=== PATIENT | female | born 1930 | race Caucasian/White ===

== ENCOUNTER 2020-02-15 18:33 | Inpatient (IN) | payer MEDICARE, OTHER ==
[~2020-02-15] VITALS: Ht 162.6 cm; Wt 71.2 kg
--- NOTE | 2020-02-15 18:43 | NUR ---
DR KAHN AT BEDSIDE FOR EVAL.
--- NOTE | 2020-02-15 18:48 | NUR ---
PT BIBRA FROM HOME TO ER BED 08. PER REPORT, PT HAVING INCREASING AGITATION. BG PER EMS SHOWING CRITICAL HIGH. PT WARM TO TOUCH, FEBRILE CHIEF FINANCIAL OFFICER. GOWNED AND PLACE ON MONITOR. AWAITING MD PIERCE.
--- NOTE | 2020-02-15 18:51 | NUR ---
RADIOLOGY AT BEDSIDE FOR CHEST XRAY.
--- NOTE | 2020-02-15 18:52 | NUR ---
IV LINE STARTED BLOOD DRAWN AND SENT TO LAB.
[2020-02-15 18:55] LABS: BASOPHILS # (AUTO) 0.2 /CMM (0.0-0.2); BASOPHILS % (AUTO) 1.2 % (0.0-2.0); EOSINOPHILS % (AUTO) 0.1 % (0.0-6.0); HEMATOCRIT 40 % (33-45); HEMOGLOBIN 12.8 g/dL (11.5-14.8); LYMPHOCYTES # (AUTO) 2.6 /CMM (0.8-4.8); LYMPHOCYTES % (AUTO) 16.2 % (20.0-44.0); MEAN CORPUSCULAR HGB CONC 32 g/dl (31.0-36.0); MEAN CORPUSCULAR VOLUME 98 fL (82-100); MONOCYTES # (AUTO) 0.7 /CMM (0.1-1.30); NEUTROPHILS # (AUTO) 12.7 /CMM (1.8-8.9); NEUTROPHILS % (AUTO) 78.5 % (43.0-81.0); PLATELET COUNT (AUTO) 303 /CMM (150-450); RED BLOOD CELL COUNT(AUTO) 4.07 MIL/uL (4.0-5.2); WHITE BLOOD COUNT (AUTO) 16.1 K/uL (4.3-11.0)
[2020-02-15] MEDS ORDERED: ACETAMINOPHEN 650 MG/SUPP.RECT RC ONE ×2 (19:00→19:07)
[2020-02-15 19:17] LABS: ALANINE AMINOTRANSFERASE 30 U/L (12-78); ALBUMIN 4.1 g/dL (3.4-5.0); ALKALINE PHOSPHATASE 141 U/L (46-116); ASPARTATE AMINOTRANSFERASE 25 U/L (15-37); BILIRUBIN,DIRECT 0.2 mg/dL (0.0-0.2); BILIRUBIN,TOTAL 0.8 mg/dL (0.2-1.0); CALCIUM, SERUM 9.7 mg/dL (8.5-10.1); CARBON DIOXIDE 17 mmol/L (21-32); CHLORIDE 89 mmol/L (98-107); CREATININE 1.7 mg/dL (0.6-1.3); POTASSIUM 3.9 mmol/L (3.5-5.1); SODIUM SERUM 128 mmol/L (136-145); UREA NITROGEN, BLOOD 40 mg/dL (7-18)
[2020-02-15 19:22] LABS: GLUCOSE 672 mg/dL (74-106)
--- NOTE | 2020-02-15 19:29 | NUR ---
REPORT GIVEN TO INSPECTING AND TESTING LEAD HAND NURSE LEONARDO FOR JAQUELIN.
--- NOTE | 2020-02-15 19:30 | NUR ---
REPORT RECEIVED FROM LILI HAYNES FOR JAQUELIN
[2020-02-15 19:59] LABS: C-REACTIVE PROTEIN 5.8 mg/dL (0.0-0.9)
[2020-02-15 20:15] LABS: APPEARANCE,URINE Clear (CLEAR); BILIRUBIN,URINE Negative (NEGATIVE); BLOOD, URINE Moderate Ery/uL (NEGATIVE); COLOR,URINE Yellow (YELLOW); KETONES,URINE 80 (NEGATIVE); LEUKOCYTE ESTERASE ,URINE Trace (NEGATIVE); NITRITE, URINE Negative (NEGATIVE); PROTEIN,URINE 100 mg/dl (NEGATIVE); UGLUCOSE 500 MG/DL mg/dL (NEGATIVE); UROBILINOGEN,URINE 0.2 EU/dL (0.2)
[2020-02-15] MEDS ORDERED: INSULIN ASPART/LISPRO 100 UNIT/ML CARTRIDGE SQ STA (20:21)
[2020-02-15 20:30] LABS: BACTERIA,URINE Few /HPF (None Seen); SQUAMOUS EPITHELIAL CELL,UR Rare /HPF (None Seen)
[2020-02-15] MEDS ORDERED: IV NS 0.9% 1,000 ML BAG IV ONE (20:30)
[2020-02-15] MEDS ORDERED: PIPERACILLIN /TAZOBACTAM 2.25 G in IV D5W 50 ML IV ONE (20:30)
[2020-02-15] MEDS ORDERED: VANCOMYCIN 1 GM in IV D5W 250 ML IV ONE (20:30)
[2020-02-15] MEDS ORDERED: INSULIN REGULAR, HUMAN 100 UNIT/ML 10 ML VIAL ONE (20:36)
[2020-02-15] MEDS ORDERED: PIPERACILLIN /TAZOBACTAM 3.375 G VIAL IV ONE (20:36)
[2020-02-15] MEDS ORDERED: VANCOMYCIN 1 GM VIAL ONE (20:36)
[2020-02-15 20:45] LABS: ABG BASE EXCESS -10.1 mmol/L; ABG OXYGEN SATURATION 95.4 % (92.0-98.5); ABG PCO2 24.4 mmHg (35.0-45.0); ABG PH 7.359 (7.350-7.450); ABG PO2 79.3 mmHg (75.0-100.0); AaDO2 41.2 mmHg; COHb 0.4 % (0.5-1.5); MetHb 0.4 % (0.0-1.5); O2Hb 94.6 % (94.0-97.0); SITE, ABG Right Radial; VENT MODE, BG ROOM AIR
--- NOTE | 2020-02-15 21:47 | NUR ---
ICU 253
--- NOTE | 2020-02-15 22:00 | NUR ---
REPORT GIVEN TO LILI STORY FOR JAQUELIN
[2020-02-15] MEDS ORDERED: ESCI10TA PO (22:11)
[2020-02-15] MEDS ORDERED: DULO20CA PO (22:11)
[2020-02-15] MEDS ORDERED: NIFE30TA91 PO (22:11)
[2020-02-15] MEDS ORDERED: ATOR40TA PO (22:11)
[2020-02-15] MEDS ORDERED: RIVA10TA PO (22:11)
[2020-02-15] MEDS ORDERED: ATEN100T PO (22:11)
[2020-02-15] MEDS ORDERED: LEVO100T9 PO (22:11)
[2020-02-15] MEDS ORDERED: INSU100V10 SQ (22:11)
[2020-02-15] MEDS ORDERED: INSU100V11 SQ (22:11)
[2020-02-15] MEDS ORDERED: DAPA10TA PO (22:11)
[2020-02-15] MEDS ORDERED: ZOLPIDEM TARTRATE 5 MG TABLET PO PRN (23:00)
[2020-02-15] MEDS ORDERED: INSULIN REGULAR, HUMAN 100 UNIT in IV NS 0.9% 99 ML IV PRN ×2 (23:00)
[2020-02-15] MEDS ORDERED: HYDROCODONE/APAP 5/325MG 1 EACH TABLET PO PRN (23:00)
[2020-02-15] MEDS ORDERED: MAGNESIUM HYDROXIDE 30 ML UDC PO PRN (23:00)
[2020-02-15] MEDS ORDERED: Z GUARD REMEDY 2 OZ OINT TP PRN (23:00)
[2020-02-15] MEDS ORDERED: ONDANSETRON HCL/PF 4 MG/2 ML VIAL IVP PRN (23:00)
--- NOTE | 2020-02-15 23:33 | NUR ---
PT TRANSPORTED TO ICU VIA ACLS PROTOCOL
--- NOTE | 2020-02-15 23:35 | NUR ---
VETERINARY MILK SPECIALISTAIR HAMMER STRIPPER NOTES RECEIVED PATIENT FROM ER VIA [facility]. PATIENT IS AWAKE, BUT CONFUSED, ONLY STATES "PLEASE HELP ME" REPEATEDLY. WHEN ASKED HOW STAFF CAN HELP, PATIENT CONTINUES TO STATES "PLEASE HELP ME." UNABLE TO ESTABLISH MEANINGFUL COMMUNICATION WITH PATIENT. PLACED ON BEDSIDE TELEMONITORING, SHOWING SINUS RHYTHM, HR 80 BPM. RIGHT ARM NOTED WITH FREEDOM SPLINT, RIGHT AC #18G, NEW IV ACCESS PLACED ON RIGHT HAND #22G, WILL START INSULIN DRIP ORDERED. SKIN CHECK DONE, PATIENT ALREADY ON ISOFLEX MATTRESS, WOUND CARE CONSULT TRIGGERED. EUBANKS CATHETER PATENT AND INTACT, DRAINING CLEAR YELLOW URINE VIA GRAVITY. WILL CONTINUE TO CLOSELY MONITOR THE PATIENT
[2020-02-15 23:37] VITALS: BP 112/78
[2020-02-15 23:42] VITALS: BP 112/78
[2020-02-15 23:45] VITALS: BP 112/78
[2020-02-15 23:48] LABS: B-TYPE NATRIURETIC PEPTIDE 2993 PG/ML (0-125); CALCIUM, SERUM 8.9 mg/dL (8.5-10.1); CARBON DIOXIDE 21 mmol/L (21-32); CHLORIDE 95 mmol/L (98-107); CREATININE 1.5 mg/dL (0.6-1.3); POTASSIUM 3.8 mmol/L (3.5-5.1); SODIUM SERUM 131 mmol/L (136-145); UREA NITROGEN, BLOOD 35 mg/dL (7-18)
[2020-02-15] MEDS: Magnesium 1GM/D5W 100ML PREMIX 100 ML IV SCH (23:50)
[2020-02-15 23:53] LABS: GLUCOSE 437 mg/dL (74-106)
[2020-02-16] VITALS (27 sets, daily range): BP systolic 108–153; BP diastolic 31–102
[2020-02-16] MEDS ORDERED: ZOSYN IVPB 2.25 G in IV D5W 50ml IV SCH ×2
[2020-02-16] MEDS ORDERED: INSULIN REGULAR, HUMAN 100 UNIT in IV NS 0.9% 99 ML IV PRN ×2
[2020-02-16] MEDS ORDERED: Potassium Chloride 20 MEQ in IV D5/ 0.9% NACL 1,000 ML IV PRN ×2
[2020-02-16] MEDS ORDERED: INSULIN REGULAR, HUMAN 100 UNIT/ML 3 ML VIAL ONE (00:11)
[2020-02-16] MEDS: BLOOD SUGAR DIAGNOSTIC 1 EACH STRIP IN SCH ×14 (00:16→21:25)
[2020-02-16] MEDS ORDERED: IV D5/0.45 NACL 1,000 ML IV PRN (00:30)
[2020-02-16] MEDS: Magnesium 1GM/D5W 100ML PREMIX 100 ML IV SCH (00:30)
[2020-02-16] MEDS ORDERED: IV NS 0.9% 1,000 ML IV PRN (00:30)
[2020-02-16] MEDS: POTASSIUM CL. PREMIX PERIPHER. 50 ML IV SCH ×6 (00:34→09:47)
--- NOTE | 2020-02-16 03:30 | NUR ---
LEATHER STRIPPING MACHINE OPERATOR NOTES BLOOD SUGAR NOW DOWN TO 221, LESS THAN 250. PER CJ ALVARADO DNP, DC IV FLUIDS NS @ 100ML/HR AND CHANGE IV FLUIDS TO D5 1/2 NS @ 100ML/HR.
[2020-02-16 04:17] LABS: BASOPHILS # (AUTO) 0.3 /CMM (0.0-0.2); BASOPHILS % (AUTO) 1.6 % (0.0-2.0); EOSINOPHILS % (AUTO) 0.5 % (0.0-6.0); HEMATOCRIT 36 % (33-45); HEMOGLOBIN 12.1 g/dL (11.5-14.8); LYMPHOCYTES # (AUTO) 4.3 /CMM (0.8-4.8); MEAN CORPUSCULAR HGB CONC 34 g/dl (31.0-36.0); MEAN CORPUSCULAR VOLUME 93 fL (82-100); MONOCYTES # (AUTO) 1.5 /CMM (0.1-1.30); MONOCYTES % (AUTO) 7.9 % (2.0-12.0); NEUTROPHILS # (AUTO) 12.6 /CMM (1.8-8.9); PLATELET COUNT (AUTO) 268 /CMM (150-450); RED BLOOD CELL COUNT(AUTO) 3.83 MIL/uL (4.0-5.2); WHITE BLOOD COUNT (AUTO) 18.8 K/uL (4.3-11.0)
[2020-02-16 04:31] LABS: ALBUMIN 3.4 g/dL (3.4-5.0); BILIRUBIN,TOTAL 0.5 mg/dL (0.2-1.0); CALCIUM, SERUM 8.7 mg/dL (8.5-10.1); CREATININE 1.3 mg/dL (0.6-1.3); MAGNESIUM 2.3 mg/dL (1.8-2.4); PHOSPHORUS 1.9 mg/dL (2.5-4.9); POTASSIUM 3.5 mmol/L (3.5-5.1); TOTAL PROTEIN, SERUM 7.8 g/dL (6.4-8.2)
[2020-02-16 04:40] LABS: THYROID STIMULATING HORMONE 7.015 uIU/mL (0.358-3.74)
--- NOTE | 2020-02-16 05:00 | NUR ---
SALES EXPERT NOTES RECEIVED CALL FROM LAB WITH CRITICAL RESULTS. TROP NOW 0.404. K = 3.5 DESPITE REPLACEMENT OF 40 MEQ KCL, ANION GAP NOW 14, LATEST BLOOD SUGAR = 156. CJ ALVARADO DNP NOTIFIED REGARDING LABS. NO NEW ORDER FOR TROPONIN SINCE HEPAPRIN IS ALREADY ORDERED Q12H, NEXT DOSE AT 0900. Addendum: 02/16/20 at 0620 by SLIM VILLATORO RN PER DNP, REPLACE K WITH ADDITIONAL 20 MEQ KCL IV. ALTHOUGH ANION GAP IS NOW 14, DNP WANTS TO KEEP INSULIN DRIP GOING SINCE PATIENT RECEIVED LONG ACTING INSULIN IN THE ER. WILL CONTINUE INSULIN DRIP ORDERED
--- NOTE | 2020-02-16 06:30 | NUR ---
SHADE MATCHER NOTES PATIENT LAYING IN BED, ASLEEP AT THIS TIME. CONTINUES ON INSULIN DRIP, CURRENT RATE @ 2.5 UNITS/HR. WILL ENDORSE THE PATIENT TO THE AM SHIFT NURSE FOR JAQUELIN
[2020-02-16] MEDS ORDERED: FEE PK DOSING 1 MIN EA MC ONE (07:02)
--- NOTE | 2020-02-16 07:40 | NUR ---
WOUND CARE CONSULT: REVIEWED CHART, NURSING DOCUMENTATION AND PHOTOS WHICH SHOW SACRAL SCARRING WITH AT LEAST PARTIAL THICKNESS WOUNDS TO SACRAL AREA AND BILATERAL BUTTOCKS, PRESENT ON ADMISSION. RECOMMENDATIONS MADE FOR WOUND CARE AND SKIN PROTECTION. DISCUSSED WITH NURSING STAFF. PT IS ON [place] ISOFLEX LOW AIRLOSS BED. WILL SEE PRN. WISEMAN IN AGREEMENT WITH PLAN OF CARE.
[2020-02-16] MEDS ORDERED: HYDROGEL DRESSING 90 GM TUBE TP PRN (08:00)
[2020-02-16] MEDS ORDERED: NEUTRA PHOS 1 POWD.PACKET PO SCH (08:30)
[2020-02-16] MEDS ORDERED: HEPARIN SODIUM, PORCINE 5000 UNITS/1 ML VIAL SQ SCH (09:00)
[2020-02-16] MEDS: POTASSIUM CHLORIDE 20 MEQ TAB.PRT.SR PO SCH ×2 (09:00→09:34)
--- NOTE | 2020-02-16 09:00 | NUR ---
RN NOTES CONFIRMED WITH DR. ALCANTARA REGARDING ORDER FOR 40MEQ POTASSIUM PO BÁRBARA TOP OF 60MEQ GIVEN IV, PER MD 60MEQ ADMINISTERED IN THE MORNING. MEDICATION NOT ADMINISTERED.
[2020-02-16] MEDS: ATORVASTATIN 40 MG TABLET PO SCH (09:31)
[2020-02-16] MEDS: FUROSEMIDE 40 MG/4 ML VIAL IV SCH ×3 (09:31→16:55)
[2020-02-16] MEDS: PANTOPRAZOLE 40 MG VIAL IV SCH (09:31)
[2020-02-16] MEDS: ASPIRIN 81 MG TAB.CHEW PO SCH (09:31)
[2020-02-16] MEDS: LEVOTHYROXINE SODIUM 100 MCG TABLET PO SCH (09:32)
[2020-02-16] MEDS: HYDROGEL DRESSING 90 GM TUBE TP SCH (09:33)
[2020-02-16] MEDS: NIFEdipine XL (30MG) 30 MG TAB PO SCH (09:33)
[2020-02-16] MEDS: ESCITALOPRAM OXALATE (10 MG) 10 MG TABLET PO SCH (09:33)
[2020-02-16] MEDS: DULOXETINE HCL 20 MG CAPSULE.DR PO SCH (09:34)
[2020-02-16] MEDS: CARVEDILOL 6.25 MG TABLET PO SCH ×2 (09:35→20:52)
[2020-02-16] MEDS ORDERED: Sodium Phosphate 15 MMOL in IV NS 0.9% 95 ML IV SCH (10:00)
[2020-02-16] MEDS ORDERED: IV NS 0.9% 250 ML IV PRN (10:00)
[2020-02-16 10:26] LABS: CALCIUM, SERUM 8.7 mg/dL (8.5-10.1); CREATININE 1.3 mg/dL (0.6-1.3); POTASSIUM 3.2 mmol/L (3.5-5.1)
--- NOTE | 2020-02-16 11:00 | NUR ---
RN NOTES DR. GONZALEZ IN THE UNIT, UPDATE WITH THE RECENT BLOOD SUGAR RESULTS AND ANION GAP. DR. GONZALEZ WITH INSTRUCTIONS TO CONFIRM WITH FAMILY ON HOW MUCH LONG ACTING INSULIN DOES THE PATIENT GETS USUALLY. ADMINISTER MEDICATION AND THEN STOP THE INSULIN DRIP AFTER AN HOUR. CALLED MATT (DAUGHTER) [phone] BUT ACCORDING TO THE DAUGHTER, PATIENT HAS BEEN RESIDING AT [place]? TEL # AT [phone]. SPOKE TO FRANCI FROM [facility] WHO CLAIMED TO FAX HOSPITAL THE MEDICATION RECORD OF THE PATIENT, AWAITING PAPER WORKS.
--- NOTE | 2020-02-16 11:30 | NUR ---
RN NOTES OBTAINED MEDICATION RECORD FROM [facility], CALLED DR. GONZALEZ TO CONFIRMED. OBTAINED ORDERS FOR 1. GIVE LANTUS 17 UNITS NOW THEN TWICE A DAY. STOP INSULI DRIP AFTER THE MEDICATION ADMINISTRATION. START PATIENT WITH DIET AND START PATIENT WITH AGGRESSIVE SLIDING SCALE. ORDERS REPEATED BACK AND CARRIED OUT.
[2020-02-16] MEDS ORDERED: *INSULIN REGULAR(HUMULIN R)HUM 100 UNIT/ML VIAL SQ PRN (12:00)
[2020-02-16] MEDS ORDERED: DEXTROSE 50%-WATER 50 ML DISP.SYRIN IV PRN (12:00)
[2020-02-16] MEDS: PIPERACILLIN /TAZOBACTAM 3.375 G in IV D5W 100 ML IV SCH ×2 (12:20→20:46)
[2020-02-16] MEDS ORDERED: INSULIN GLARGINE, 100 UNIT/ML CARTRIDGE SQ SCH (12:26)
[2020-02-16] MEDS: INSULIN GLARGINE, 100 UNIT/ML CARTRIDGE SQ SCH ×2 (12:33→21:00)
--- NOTE | 2020-02-16 13:00 | NUR ---
RN NOTES ENDORSED PATIENT TO LILI MARTIN FOR CONTINUITY OF CARE. ALL NURSING NEEDS ATTENDED AND MMET. HANDS OFF
[2020-02-16] MEDS ORDERED: VANCOMYCIN 0.75 GM in IV D5W 250 ML IV SCH (15:00)
[2020-02-16] MEDS: RIVAROXABAN 10 MG TABLET PO SCH (16:55)
[2020-02-16] MEDS: INSULIN REGULAR, HUMAN 100 UNIT/ML 3 ML VIAL SQ PRN (17:19)
--- NOTE | 2020-02-16 19:20 | NUR ---
RN OPENING NOTES RECEIVED PATIENT ALERT DISORIENTED,CONFUSED, VERBALLY RESPONSIVE AZERI SPEAKER,BREATHING IS EVEN AND UNLABORED NO PAIN NOT ACUTE DISTRESS NOTED,SKIN IS WARM TO TOUCH,IV MID LINE ON RIGHT UPPER ARM,CONTINUE TO MONITOR.
--- NOTE | 2020-02-16 19:29 | NUR ---
RN NOTE: PATIENT REMAINS IN BED, NO SIGNS OF ACUTE DISTRESS NOTED. SR IN THE 60S. SAFETY MEASURES IMPLEMENTED, BED IN LOWEST POSITION, LOCKED, SIDE RAILS UP. ENDORSED TO LILI BRINK FOR CONTINUITY OF CARE.
--- NOTE | 2020-02-16 22:55 | NUR ---
OUTSOLE CEMENTER MACHINE NOTES PATIENT ARRIVED ON UNIT AT 2255. ALERT AND ORIENTED X 1. BREATHING EVEN AND UNLABORED ON ROOM AIR. SHOWS NO SIGNS OF ACUTE RESPIRATORY DISTRESS, NO ACUTE PAIN. IV ON RAC 18G AND ALISTAIR MIDLINE. ITS CLEAN DRY AND INTACT. SHOWS NO SIGNS OF INFILTRATION, NO REDNESS. SAFETY PRECAUTIONS IN PLACE. BED IN LOWEST POSITION, LOCKED, AND CALL LIGHT KEPT WITHIN REACH. WILL CONTINUE TO MONITOR
--- NOTE | 2020-02-16 23:00 | NUR ---
RN CLOSING NOTE PATIENT TRANSFERRED TO ROOM 309 AT 2300 IN STABLE CONDITION,BREATHING IS EVEN AND UNLABORED NOT ACUTE DISTRESS NOTED,ALL DUE MEDS GIVEN MD ORDERED.ENDORSED TO NURSE FOR CONTINUATION OF CARE.
[2020-02-16] MEDS: ACETAMINOPHEN 325 MG TABLET PO PRN (23:08)
[2020-02-17] VITALS: BP 118/57
[2020-02-17] MEDS: PIPERACILLIN /TAZOBACTAM 3.375 G in IV D5W 100 ML IV SCH ×3 (04:09→20:03)
[2020-02-17 06:28] LABS: BASOPHILS # (AUTO) 0.1 /CMM (0.0-0.2); BASOPHILS % (AUTO) 1.2 % (0.0-2.0); EOSINOPHILS % (AUTO) 2.7 % (0.0-6.0); HEMATOCRIT 39 % (33-45); HEMOGLOBIN 13.1 g/dL (11.5-14.8); LYMPHOCYTES # (AUTO) 3.7 /CMM (0.8-4.8); MEAN CORPUSCULAR HGB CONC 34 g/dl (31.0-36.0); MEAN CORPUSCULAR VOLUME 94 fL (82-100); MONOCYTES # (AUTO) 0.8 /CMM (0.1-1.30); MONOCYTES % (AUTO) 7.9 % (2.0-12.0); NEUTROPHILS # (AUTO) 5.4 /CMM (1.8-8.9); NEUTROPHILS % (AUTO) 52.2 % (43.0-81.0); PLATELET COUNT (AUTO) 238 /CMM (150-450); RED BLOOD CELL COUNT(AUTO) 4.16 MIL/uL (4.0-5.2); WHITE BLOOD COUNT (AUTO) 10.4 K/uL (4.3-11.0)
[2020-02-17] MEDS: BLOOD SUGAR DIAGNOSTIC 1 EACH STRIP IN SCH ×4 (06:32→21:47)
[2020-02-17] MEDS: INSULIN REGULAR, HUMAN 100 UNIT/ML 3 ML VIAL SQ PRN ×3 (06:34→17:39)
--- NOTE | 2020-02-17 06:39 | NUR ---
VOIP NETWORK ENGINEER NOTES PATIENT IN BED, ASLEEP. ALERT AND ORIENTED X 1. BREATHING EVEN AND UNLABORED ON ROOM AIR. SHOWS NO SIGNS OF ACUTE RESPIRATORY DISTRESS, NO ACUTE PAIN. TELE MONITOR SR/ SB. IV ON RAC 18G AND ALISTAIR MIDLINE. ITS CLEAN DRY AND INTACT. SHOWS NO SIGNS OF INFILTRATION, NO REDNESS. ALL DUE MEDICATIONS GIVEN. SAFETY PRECAUTIONS IN PLACE. BED IN LOWEST POSITION, LOCKED, AND CALL LIGHT KEPT WITHIN REACH. WILL ENDORSE TO ONCOMING NURSE.
--- NOTE | 2020-02-17 07:30 | NUR ---
PRODUCT MGR NOTES PT IN BED, AWAKE, ALERT AND ORIENTED, DENIES PAIN, NOT IN DISTRESS, CALL LIGHT WITHIN REACH, KEPT COMFORTABLE IN BED.
[2020-02-17 07:56] LABS: BILIRUBIN,TOTAL 0.8 mg/dL (0.2-1.0); CALCIUM, SERUM 8.8 mg/dL (8.5-10.1); CREATININE 1.3 mg/dL (0.6-1.3); MAGNESIUM 1.9 mg/dL (1.8-2.4); PHOSPHORUS 3.5 mg/dL (2.5-4.9); POTASSIUM 3.2 mmol/L (3.5-5.1); TOTAL PROTEIN, SERUM 7.3 g/dL (6.4-8.2)
[2020-02-17 08:00] VITALS: BP 137/72
[2020-02-17] MEDS: ASPIRIN 81 MG TAB.CHEW PO SCH (08:48)
[2020-02-17] MEDS: DULOXETINE HCL 20 MG CAPSULE.DR PO SCH (08:48)
[2020-02-17] MEDS: ATORVASTATIN 40 MG TABLET PO SCH (08:48)
[2020-02-17] MEDS: PANTOPRAZOLE 40 MG VIAL IV SCH (08:48)
[2020-02-17] MEDS: ESCITALOPRAM OXALATE (10 MG) 10 MG TABLET PO SCH (08:48)
[2020-02-17] MEDS: CARVEDILOL 6.25 MG TABLET PO SCH ×2 (08:49→20:56)
[2020-02-17] MEDS: NIFEdipine XL (30MG) 30 MG TAB PO SCH (08:49)
[2020-02-17] MEDS: INSULIN GLARGINE, 100 UNIT/ML CARTRIDGE SQ SCH ×2 (09:08→21:47)
[2020-02-17] MEDS: HYDROGEL DRESSING 90 GM TUBE TP SCH (09:15)
[2020-02-17] MEDS: LEVOTHYROXINE SODIUM 100 MCG TABLET PO SCH (09:52)
[2020-02-17] MEDS: POTASSIUM CHLORIDE 20 MEQ TAB.PRT.SR PO SCH ×4 (09:52→13:22)
[2020-02-17] MEDS: FUROSEMIDE 100 MG/10 ML VIAL IV SCH ×3 (09:53→17:30)
--- NOTE | 2020-02-17 14:55 | NUR ---
customs officer Notes Patient is alert, awake and oriented. Accucheck was 219 mg/dL and insulin was given. Scheduled medication was given. Bed is in low setting with side rails up. Call light is in reach. Continue to monitor.
[2020-02-17 16:00] VITALS: BP 114/64
[2020-02-17] MEDS: RIVAROXABAN 10 MG TABLET PO SCH (16:26)
[2020-02-17] MEDS: ACETAMINOPHEN 325 MG TABLET PO PRN (16:26)
--- NOTE | 2020-02-17 18:30 | NUR ---
RN Closing Notes Patient is alert, orientated and awake. Accucheck was 234 mg/dL insulin was given. Patient c/o of headache gave 2 Tylenol tablets. IV is on her RAC and ALISTAIR both intact no signs of redness and no pain. Gave scheduled medications. Bed setting is low with both side rails up and call light is within reach.
--- NOTE | 2020-02-17 19:40 | NUR ---
FAMILY CONSUMER SCIENTIST OPENING NOTES RECEIVED PATIENT FROM MORNING SHIFT, ALERT AND ORIENTED X 1-2 CONFUSED. VERBALLY RESPONSIVE BARBADIAN SPEAKING AND ABLE TO FOLLOW SIMPLE DIRECTIONS. BREATHING REGULAR AND UNLABORED ON ROOM AIR. ON CARDIAC MONITORING WITH NORMAL SINUS RHYTHM AT 72bpm. RIGHT AC G18 IV AND RIGHT UPPER ARM MIDLINE INTACT AND PATENT, FLUSHING WELL WITH NO BLEEDING OR S/S OF INFILTRATION NOTED. NO S/S OF PAIN/DISCOMFORT NOTED AT THIS TIME. BED LOW AND LOCKED ON SEMI FOWLERS POSITION. CALL LIGHT IN REACH. WILL CONTINUE TO MONITOR.
[2020-02-17 20:00] VITALS: BP 119/69
[2020-02-17 20:40] VITALS: BP 119/69
--- NOTE | 2020-02-17 22:00 | NUR ---
PUBLICATIONS WRITER NOTES BS 183mg/dl, 3UNITS REGULAR INSULIN AND 17UNITS LANTUS GIVEN SQ. SITE ROTATED. SNACKS PROVIDED ON BEDSIDE. ASSISTED ON FEEDING. WILL CONTINUE TO MONITOR.
[2020-02-18] VITALS: BP_SYST 125; BP_SYST 128; BP_DIAS 69
[2020-02-18] MEDS: PIPERACILLIN /TAZOBACTAM 3.375 G in IV D5W 100 ML IV SCH ×2 (03:32→12:00)
[2020-02-18] MEDS: ACETAMINOPHEN 325 MG TABLET PO PRN (03:37)
--- NOTE | 2020-02-18 03:40 | NUR ---
ATOMIC PHYSICS TEACHER NOTES COMPLAINED OF 3/20 HEADACHE ALSO SEEN WITH FACIAL GRIMACING, TYLENOL 650MG GIVEN BY MOUTH. NON-PHARMACOLOGICAL INTERVENTIONS PROVIDED. WILL CONTINUE TO MONITOR.
[2020-02-18 04:00] VITALS: BP 136/64
--- NOTE | 2020-02-18 06:30 | NUR ---
RUBBER WASHER CLOSING NOTES PATIENT IN BED ALERT AND ORIENTED X 1-2 WITH EPISODES OF CONFUSION. AFEBRILE WITH NO S/S OF DISTRESS OBSERVED. MAINTAINED ON CARDIAC MONITORING WITH NORMAL SINUS RHYTHM AT 68bpm. RIGHT UPPER ARM MIDLINE PATENT AND FLUSHING WELL. NO S/S OF PAIN/DISCOMFORT NOTED AT THIS TIME. EUBANKS CATH INTACT, DRAINING CLEAR YELLOW URINE 1800cc OUTPUT. BED LOW AND LOCKED ON SEMI FOWLERS POSITION. CALL LIGHT IN REACH. WILL ENDORSE TO MORNING SHIFT FOR JAQUELIN.
[2020-02-18] MEDS: BLOOD SUGAR DIAGNOSTIC 1 EACH STRIP IN SCH ×3 (06:39→16:58)
[2020-02-18 06:41] LABS: BASOPHILS # (AUTO) 0.1 /CMM (0.0-0.2); BASOPHILS % (AUTO) 0.8 % (0.0-2.0); EOSINOPHILS % (AUTO) 4.5 % (0.0-6.0); HEMATOCRIT 41 % (33-45); HEMOGLOBIN 13.7 g/dL (11.5-14.8); LYMPHOCYTES % (AUTO) 32.7 % (20.0-44.0); MEAN CORPUSCULAR HGB CONC 33 g/dl (31.0-36.0); MEAN CORPUSCULAR VOLUME 94 fL (82-100); MONOCYTES # (AUTO) 0.8 /CMM (0.1-1.30); MONOCYTES % (AUTO) 8.5 % (2.0-12.0); NEUTROPHILS % (AUTO) 53.5 % (43.0-81.0); PLATELET COUNT (AUTO) 226 /CMM (150-450); RED BLOOD CELL COUNT(AUTO) 4.37 MIL/uL (4.0-5.2); WHITE BLOOD COUNT (AUTO) 9.3 K/uL (4.3-11.0)
[2020-02-18] MEDS: INSULIN REGULAR, HUMAN 100 UNIT/ML 3 ML VIAL SQ PRN ×2 (06:43→11:37)
[2020-02-18 07:00] LABS: ALBUMIN 3.1 g/dL (3.4-5.0); BILIRUBIN,TOTAL 0.8 mg/dL (0.2-1.0); CALCIUM, SERUM 9.2 mg/dL (8.5-10.1); CREATININE 1.3 mg/dL (0.6-1.3); MAGNESIUM 1.6 mg/dL (1.8-2.4); PHOSPHORUS 3.2 mg/dL (2.5-4.9); POTASSIUM 3.3 mmol/L (3.5-5.1); TOTAL PROTEIN, SERUM 7.9 g/dL (6.4-8.2)
--- NOTE | 2020-02-18 07:30 | NUR ---
INVESTIGATIVE RESEARCH SPECIALIST NOTES PT AWAKE, ALERT AND VERBALLY RESPONSIVE, EATING BREAKFAST, NO COMPLAINT OF PAIN, BREATHING PATTERN NORMAL, CALL LIGHT WITHIN REACH, NEEDS ATTENDED.
[2020-02-18 08:00] VITALS: BP 146/68
[2020-02-18] MEDS ORDERED: POTASSIUM CHLORIDE 20 MEQ TAB.PRT.SR PO ONE (08:30)
[2020-02-18] MEDS: DULOXETINE HCL 20 MG CAPSULE.DR PO SCH (09:14)
[2020-02-18] MEDS: ATORVASTATIN 40 MG TABLET PO SCH (09:14)
[2020-02-18] MEDS: LEVOTHYROXINE SODIUM 100 MCG TABLET PO SCH (09:14)
[2020-02-18] MEDS: ESCITALOPRAM OXALATE (10 MG) 10 MG TABLET PO SCH (09:14)
[2020-02-18] MEDS: PANTOPRAZOLE 40 MG VIAL IV SCH (09:14)
[2020-02-18] MEDS: CARVEDILOL 6.25 MG TABLET PO SCH (09:15)
[2020-02-18] MEDS: ASPIRIN 81 MG TAB.CHEW PO SCH (09:16)
[2020-02-18] MEDS: NIFEdipine XL (30MG) 30 MG TAB PO SCH (09:16)
[2020-02-18] MEDS: INSULIN GLARGINE, 100 UNIT/ML CARTRIDGE SQ SCH (09:24)
[2020-02-18] MEDS: HYDROGEL DRESSING 90 GM TUBE TP SCH (09:28)
[2020-02-18] MEDS: Magnesium 1GM/D5W 100ML PREMIX 100 ML IV SCH ×2 (09:31→10:14)
[2020-02-18] MEDS: POTASSIUM CHLORIDE 20 MEQ TAB.PRT.SR PO SCH ×3 (09:41→12:39)
[2020-02-18] MEDS ORDERED: LEVO500T75 PO (11:55)
[2020-02-18] MEDS ORDERED: Insulin Glargine,Hum SQ (11:55)
[2020-02-18] MEDS ORDERED: CARV6.252 PO (11:55)
[2020-02-18] MEDS ORDERED: ASPI-1169 PO (11:55)
--- NOTE | 2020-02-18 13:00 | NUR ---
RN MS NOTES PT IN BED, AWAKE, ALERT AND VERBALLY RESPONSIVE, ABLE TO MAKE NEEDS KNOWN, SEEN BY DR. GONZALEZ, DISCHARGE ORDER GIVEN, PT AND DAUGHTER MATT INFORMED, QUILT MAKER ARRANGING FOR PLACEMENT.
[2020-02-18 15:18] VITALS: BP 98/64
[2020-02-18] MEDS: RIVAROXABAN 10 MG TABLET PO SCH (16:59)
--- NOTE | 2020-02-18 18:26 | NUR ---
RN MS NOTES PT IN BED, RESTING, AWAKE, ALERT AND VERBALLY RESPONSIVE, NO COMPLAINT OF PAIN, RESPIRATIONS NORMAL, CALL LIGHT WITHIN REACH, DISCHARGE ORDER GIVEN BY DR. GONZALEZ, PT AND DAUGHTER MATT INFORMED, DISCHARGE AND MEDICATION INSTRUCTIONS PROVIDED TO PT'S DAUGHTER MATT, VERBALIZED UNDERSTANDING, BELONGINGS ACCOUNTED FOR, REPORT GIVEN TO CATALINA PEARSON OF [facility], ESTIMATED DIETARY SERVER TIME IS 7:30PM, DAUGHTER MATT AWARE.
--- NOTE | 2020-02-18 19:45 | NUR ---
MS RN NOTES AMBULANCE CAME IN AND PICKED UP PT. PT AWAKE & RESPONSIVE. NOT IN ANY DISTRESS. NO SOB NOTED. DENIES ANY PAIN OR DISCOMFORT AT THIS TIME. BELONGINGS SENT WITH PT. VSS. AFEBRILE. PT LEFT FACILITY IN STABLE CONDITION. REPORT GIVEN TO EMT PERSONNEL FOR CONTINUITY OF CARE.
[2020-02-18 20:00] VITALS: BP 132/74
[2020-02-18] MEDS ORDERED: AMOX/CLAVULANATE 875 MG TABLET PO SCH (21:00)
== END 2020-02-18 19:50 | DRG 871 ==
LOC: ER 18:39 → ICU 21:51 → TELE 02-16 22:42 → MED 02-18 09:37
PROVIDERS: ADMIT Hospitalist; ATTEND Internal Medicine
PROC: 05HY33Z Insertion of Infusion Device into Upper Vein, Percutaneous Approach (ICD-10-PCS; principal; 2020-02-16)
DX: A41.9 Sepsis, unspecified organism (principal); G93.41 Metabolic encephalopathy; N17.0 Acute kidney failure with tubular necrosis; E11.10 Type 2 diabetes mellitus with ketoacidosis without coma; I21.A1 Myocardial infarction type 2; E87.1 Hypo-osmolality and hyponatremia; J98.11 Atelectasis; E87.2 Acidosis; N13.6 Pyonephrosis; I13.0 Hypertensive heart and chronic kidney disease with heart failure and stage 1 through stage 4 chronic kidney disease, or unspecified chronic kidney disease; R65.20 Severe sepsis without septic shock; K57.30 Diverticulosis of large intestine without perforation or abscess without bleeding; D72.829 Elevated white blood cell count, unspecified; E86.0 Dehydration; K44.9 Diaphragmatic hernia without obstruction or gangrene; B96.20 Unspecified Escherichia coli [E. coli] as the cause of diseases classified elsewhere; J01.90 Acute sinusitis, unspecified; I50.9 Heart failure, unspecified; N18.9 Chronic kidney disease, unspecified; E66.9 Obesity, unspecified; E03.9 Hypothyroidism, unspecified; Z68.26 Body mass index [BMI] 26.0-26.9, adult; E11.22 Type 2 diabetes mellitus with diabetic chronic kidney disease; E78.5 Hyperlipidemia, unspecified; D64.9 Anemia, unspecified
CPT/HCPCS: 36415; 36600; 70450-TC; 71045-TC; 76770-TC; 80048-TC; 80053-TC; 80061-TC; 80076-TC; 81000-TC; 82550-TC; 82728-TC; 82803-TC; 82962-TC; 83540-TC; 83605-TC; 83615-TC; 83735-TC; 83880; 84100-TC; 84439-TC; 84443-TC; 84484-TC; 85025-TC; 85378-TC; 85385-TC; 85730-TC; 86140-TC; 87040-TC; 87081-TC; 87086-TC; 87186-TC; 93307-TC; A6248; A9563; C9113; G0378; J1815; J1940; J2543; J3370; J3475; J3480; J3490; J7030; J7042; J7050; J7060; U0003-CS